=== PATIENT | male | born 1945 | race Caucasian/White ===

== ENCOUNTER 2022-02-28 10:43 | Outpatient (CLI) | payer MEDICARE ==
[2022-02-28 12:28] LABS: #Basophils 0.1 10x3/uL (0.0-0.2); #Eosinphils 0.3 10x3/uL (0.0-0.5); #Monocytes 0.7 10x3/uL (0.0-1.1); #Neutrophils 5.8 10x3/uL (1.5-8.4); %Basophils 0.8 % (0.0-2.0); %Eosinophils 3.3 % (0.0-6.0); %Lymphocytes 20.3 % (18.0-47.0); %Monocytes 8.3 % (0.0-10.0); Hemoglobin 14.2 g/dL (13.5-17.5); Mean Corpuscular HGB CONC 32.2 g/dL (32.0-36.0); Mean Corpuscular Hemoglobin 30.7 pg (27.0-33.0); Mean Corpuscular Volume 95.2 fl (81.2-95.1); Mean Platelet Volume 10.3 fl (7.4-10.4); Platelet Count 204 10x3/uL (150-450); RBC Distribution Width 13.7 % (11.5-14.5); Red Blood Cell (RBC) Count 4.63 10x6/uL (4.32-5.72); White Blood Cell (WBC) Count 8.7 10x3/uL (3.5-10.5)
[2022-02-28 12:54] LABS: Prothrombin Time 10.4 sec (9.5-12.1)
[2022-02-28 13:26] LABS: Anion Gap 13 mmol/L (10-20); BUN (Urea Nitrogen) 12 mg/dL (8.4-25.7); Calc. Creatinine Clearance 0 mL/min (70-130); Calcium 9.5 mg/dL (7.8-10.44); Carbon Dioxide 29 mmol/L (23-31); Chloride 106 mmol/L (98-107); Glucose 92 mg/dL (83-110); Potassium 4.7 mmol/L (3.5-5.1); Sodium 143 mmol/L (136-145)
== END 2022-02-28 10:44 | disposition home or self-care (01) ==
LOC: LABBT 10:43
PROVIDERS: ATTEND Orthopaedic Surgery
DX: Z01.818 Encounter for other preprocedural examination (principal); M17.11 Unilateral primary osteoarthritis, right knee; Z20.822 Contact with and (suspected) exposure to COVID-19
CPT/HCPCS: 80048; 85025; 85610; 87081; 93005; U0003; U0005; 93010

== ENCOUNTER 2022-03-05 06:22 | Observation (INO) | payer MEDICARE ==
[2022-03-01 11:51] VITALS: BMI 28.7
[2022-03-05] MEDS ORDERED: Tranexamic Acid 1,000 MG/10 ML VIAL ONE (07:13)
[2022-03-05] MEDS ORDERED: Vancomycin (BATCH) 1.5 GRAM/300 ML BAG ONE (07:13)
[2022-03-05] MEDS ORDERED: Fentanyl 100 MCG/2 ML VIAL ONE (08:07)
[2022-03-05] MEDS ORDERED: Midazolam HCl 2 mg/2 ml Vial ONE (08:07)
[2022-03-05] MEDS ORDERED: Fentanyl 100 MCG/2 ML VIAL SLOW IVP PRN (08:59)
[2022-03-05] MEDS ORDERED: Zolpidem Tartrate 5 MG TAB PO PRN ×2 (09:00→10:38)
[2022-03-05] MEDS ORDERED: fentaNYL Citrate/PF 100 MCG/2 ML SYRINGE ONE (09:00)
[2022-03-05] MEDS ORDERED: Ropivacaine 0.2% 550 ML 550 ML NERVE BLCK SCH (09:00)
[2022-03-05] MEDS ORDERED: traMADol HCl 50 MG TAB PO PRN ×2 (09:00)
[2022-03-05] MEDS ORDERED: Ondansetron PF 4 MG/2 ML Vial IVP PRN ×2 (09:00→10:38)
[2022-03-05] MEDS ORDERED: HYDROcodone/Acetaminophen 10/325 mg Tablet PO PRN (09:00)
[2022-03-05] MEDS ORDERED: Promethazine HCl 25 MG/ML VIAL IM PRN ×3 (09:00→10:38)
[2022-03-05] MEDS ORDERED: CEFAZOLIN 2 GM VIAL ONE (09:05)
[2022-03-05] MEDS ORDERED: Sodium Chloride 0.9% 100 ML ONE (09:05)
[2022-03-05] MEDS ORDERED: PROPOFOL 200 MG/20 ML VIAL ONE (09:13)
[2022-03-05] MEDS ORDERED: Lidocaine 1% PF 5 ML VIAL ONE (09:13)
[2022-03-05] MEDS ORDERED: Bupivacaine HCl 0.5%/Epinephrine 1:200,000/PF 30 ml Vial ONE (09:13)
[2022-03-05] MEDS ORDERED: PHENYLEPHRINE-NS 100 MCG/ML 10 ML SYRINGE ONE (09:13)
[2022-03-05] MEDS ORDERED: Ondansetron PF 4 MG/2 ML Vial ONE (09:13)
[2022-03-05] MEDS ORDERED: Dexamethasone 20 MG/5 ML VIAL ONE (09:13)
[2022-03-05] MEDS ORDERED: ePHEDrine 50 MG/ML VIAL ONE (09:13)
[2022-03-05] MEDS ORDERED: Bupivacaine PF 0.5% 30 ML VIAL ONE (09:42)
[2022-03-05] MEDS ORDERED: Promethazine HCl 25 MG/ML VIAL IVPB PRN (10:10)
[2022-03-05] MEDS ORDERED: Ondansetron HCl/PF 4 MG/2 ML Vial IVP PRN (10:10)
[2022-03-05] MEDS ORDERED: Ketorolac Tromethamine 30 MG/ML VIAL IVP PRN (10:10)
[2022-03-05] MEDS ORDERED: Acetaminophen 325 MG TAB PO PRN (10:38)
[2022-03-05] MEDS ORDERED: diphenhydrAMINE 25 MG CAP PO PRN (10:38)
[2022-03-05] MEDS: HYDROcodone/Acetaminophen 10/325 mg Tablet PO PRN ×2 (12:54→20:34)
[2022-03-05] MEDS: Ketorolac Tromethamine 30 MG/ML VIAL IVP SCH ×3 (12:55→23:25)
[2022-03-05] MEDS: Sodium Chloride 0.9% 1,000 ML IV SCH ×2 (12:59→20:34)
[2022-03-05] MEDS: CEFAZOLIN 2 GM in Sodium Chloride 0.9% 100 ML IVPB SCH (17:28)
[2022-03-05] MEDS: Aspirin 81 mg Enteric Coated Tablet PO SCH (20:33)
[2022-03-05] MEDS: Carvedilol 3.125 MG TAB PO SCH (20:34)
[2022-03-05] MEDS ORDERED: Rosuvastatin 20 MG TAB PO SCH (21:00)
[2022-03-06] MEDS: CEFAZOLIN 2 GM in Sodium Chloride 0.9% 100 ML IVPB SCH (02:33)
[2022-03-06] MEDS: Ketorolac Tromethamine 30 MG/ML VIAL IVP SCH (05:15)
[2022-03-06] MEDS: Sodium Chloride 0.9% 1,000 ML IV SCH (05:21)
[2022-03-06 05:25] VITALS: TEMP 97.4
[2022-03-06 05:45] LABS: Hemoglobin 12.7 g/dL (14.0-18.0); Mean Corpuscular HGB CONC 32.8 g/dL (32.0-36.0); Mean Corpuscular Hemoglobin 31.5 pg (27.0-31.0); Mean Corpuscular Volume 96.2 fL (78.0-98.0); Platelet Count 164 thou/uL (130-400); RBC Distribution Width 12.2 % (11.5-14.5); Red Blood Cell (RBC) Count 4.04 mill/uL (4.70-6.10); White Blood Cell (WBC) Count 16.3 thou/uL (4.8-10.8)
[2022-03-06 08:00] VITALS: BP 118/70
[2022-03-06] MEDS: Aspirin 81 mg Enteric Coated Tablet PO SCH (08:31)
[2022-03-06] MEDS: Carvedilol 3.125 MG TAB PO SCH (08:33)
[2022-03-06] MEDS ORDERED: Aspirin 81 mg Enteric Coated Tablet PO SCH (09:00)
[2022-03-06] MEDS ORDERED: Senokot S 8.6-50 MG TAB PO SCH (09:00)
[2022-03-06] MEDS ORDERED: Ferrous Gluconate 324 MG TAB PO SCH (09:00)
[2022-03-06] MEDS ORDERED: Multivitamin W/ Minerals 1 TAB PO SCH (09:00)
== END 2022-03-06 11:47 | disposition home or self-care (01) ==
LOC: SDC 06:22 → SURG A 10:38 → SDC 13:00 → SURG A 16:23
PROVIDERS: ADMIT Orthopaedic Surgery; ATTEND Orthopaedic Surgery
PROC: 0SRC0J9 Replacement of Right Knee Joint with Synthetic Substitute, Cemented, Open Approach (ICD-10-PCS; principal; 2022-03-05)
PROC: 3E0T3BZ Introduction of Anesthetic Agent into Peripheral Nerves and Plexi, Percutaneous Approach (ICD-10-PCS; 2022-03-05)
DX: M17.11 Unilateral primary osteoarthritis, right knee (principal); I10 Essential (primary) hypertension; E78.5 Hyperlipidemia, unspecified; I25.10 Atherosclerotic heart disease of native coronary artery without angina pectoris; I25.2 Old myocardial infarction; F03.90 Unspecified dementia, unspecified severity, without behavioral disturbance, psychotic disturbance, mood disturbance, and anxiety; Z79.82 Long term (current) use of aspirin; Z79.899 Other long term (current) drug therapy; Z95.1 Presence of aortocoronary bypass graft; Z95.5 Presence of coronary angioplasty implant and graft; Z87.891 Personal history of nicotine dependence; Z86.73 Personal history of transient ischemic attack (TIA), and cerebral infarction without residual deficits
CPT/HCPCS: 27447; 64448; 73560; 85027; 97110 ×2; 97116 ×2; 97530 ×2; A4306; C1713; C1776; J3370; 36415; 96365; 96375; 96376; G0378; J0690; J1100; J1885; J2250; J2405; J2704; J2795; J3010; J3490; S0020